=== PATIENT | female | born 1950 | race African-American/Black ===

== ENCOUNTER 2021-05-02 04:27 | Day surgery (SDC) | payer OTHER ==
[2021-04-27 13:56] VITALS: BMI 35.0
[2021-05-02] MEDS ORDERED: MIDAZOLAM HCL 2 MG/2 ML SINGLE DOSE VIAL ONE ×2 (09:49→10:31)
[2021-05-02] MEDS ORDERED: LIDOCAINE HCL/PF 2% SDV 5ML VIAL ONE (09:49)
[2021-05-02] MEDS ORDERED: ceFAZolin SODIUM 1 GM VIAL IVPB ONE (10:43)
[2021-05-02] MEDS ORDERED: PROPOFOL 20 ML ONE (10:55)
[2021-05-02] MEDS ORDERED: KETOROLAC TROMETHAMINE 30 MG/1 ML VIAL ONE (10:56)
[2021-05-02] MEDS ORDERED: ELECTROLYTE-148 SOLN 1,000 ML IV SCH (11:15)
[2021-05-02 14:51] VITALS: BP 128/75; PULSE 76; TEMP 97.9
== END 2021-05-02 13:40 | disposition home or self-care (01) ==
LOC: JASU-SURG 04:27
PROVIDERS: ATTEND Urology
PROC: 0TF3XZZ Fragmentation in Right Kidney Pelvis, External Approach (ICD-10-PCS; principal; 2021-05-02 11:00)
DX: N20.0 Calculus of kidney (principal); E11.9 Type 2 diabetes mellitus without complications; I10 Essential (primary) hypertension; I25.10 Atherosclerotic heart disease of native coronary artery without angina pectoris; Z85.3 Personal history of malignant neoplasm of breast; G47.33 Obstructive sleep apnea (adult) (pediatric)
CPT/HCPCS: 82962

== ENCOUNTER 2021-06-13 04:38 | Day surgery (SDC) | payer OTHER ==
[2021-06-12 13:57] VITALS: BMI 34.7
[2021-06-13] MEDS ORDERED: ELECTROLYTE-148 SOLN 1,000 ML IV SCH (11:00)
[2021-06-13] MEDS ORDERED: PROPOFOL 20 ML ONE (11:04)
[2021-06-13] MEDS ORDERED: MIDAZOLAM HCL 2 MG/2 ML SINGLE DOSE VIAL ONE (11:05)
[2021-06-13] MEDS ORDERED: ceFAZolin SODIUM 1 GM VIAL ONE (11:09)
[2021-06-13] MEDS ORDERED: SODIUM CHLORIDE 0.9% P/F 10 ML VIAL IJ ONE (11:09)
[2021-06-13] MEDS ORDERED: ceFAZolin SODIUM 1 GM VIAL IVPB ONE (11:13)
[2021-06-13] MEDS ORDERED: KETOROLAC TROMETHAMINE 30 MG/1 ML VIAL ONE (11:15)
[2021-06-13 12:11] VITALS: TEMP 97.6
[2021-06-13 16:16] VITALS: BP 141/76; PULSE 58
== END 2021-06-13 13:45 | disposition home or self-care (01) ==
LOC: JASU-SURG 04:38
PROVIDERS: ATTEND Urology
PROC: 0TF4XZZ Fragmentation in Left Kidney Pelvis, External Approach (ICD-10-PCS; principal; 2021-06-13 10:45)
DX: N20.2 Calculus of kidney with calculus of ureter (principal)

== ENCOUNTER 2021-07-06 04:19 | Day surgery (SDC) | payer OTHER ==
[2021-07-05 11:22] VITALS: BMI 34.7
[2021-07-06] MEDS ORDERED: LIDOCAINE HCL/PF 2% SDV 5ML VIAL ONE (12:52)
[2021-07-06] MEDS ORDERED: MIDAZOLAM HCL 2 MG/2 ML SINGLE DOSE VIAL ONE (12:52)
[2021-07-06] MEDS ORDERED: PROPOFOL 20 ML ONE (12:52)
[2021-07-06] MEDS ORDERED: ceFAZolin SODIUM 1 GM VIAL ONE (13:23)
[2021-07-06] MEDS ORDERED: ceFAZolin SODIUM 1 GM VIAL IVPB ONE (13:24)
[2021-07-06] MEDS ORDERED: KETOROLAC TROMETHAMINE 30 MG/1 ML VIAL ONE (13:59)
[2021-07-06] MEDS ORDERED: oxyCODONE HCL 5 MG TABLET PO PRN (14:25)
[2021-07-06] MEDS ORDERED: ONDANSETRON 4 MG/2 ML VIAL IVPUSH PRN (14:25)
[2021-07-06] MEDS ORDERED: ACETAMINOPHEN 500 MG TABLET (FP) PO PRN (14:25)
[2021-07-06] MEDS ORDERED: LACTATED RINGERS SOLUTION 1,000 ML IV SCH (14:30)
[2021-07-06] MEDS ORDERED: ELECTROLYTE-148 SOLN 1,000 ML IV SCH (15:45)
[2021-07-06 15:47] VITALS: TEMP 96.8
[2021-07-06 16:30] VITALS: BP 124/62; PULSE 80
== END 2021-07-06 16:30 | disposition home or self-care (01) ==
LOC: JASU-SURG 04:19
PROVIDERS: ATTEND Urology
PROC: 0TB78ZX Excision of Left Ureter, Via Natural or Artificial Opening Endoscopic, Diagnostic (ICD-10-PCS; principal; 2021-07-06 12:30)
DX: N28.9 Disorder of kidney and ureter, unspecified (principal); I10 Essential (primary) hypertension; E11.9 Type 2 diabetes mellitus without complications
CPT/HCPCS: 88108; 88305-TC; 94760

== ENCOUNTER 2022-01-09 04:27 | Day surgery (SDC) | payer OTHER ==
[2022-01-05 11:58] VITALS: BMI 34.0
[2022-01-09] MEDS ORDERED: ELECTROLYTE-148 SOLN 1,000 ML IV SCH (11:45)
[2022-01-09] MEDS ORDERED: ceFAZolin SODIUM 1 GM VIAL IVPB ONE (12:16)
[2022-01-09] MEDS ORDERED: IOHEXOL 300 MG/ML INFUS..BTL IV ONE (13:15)
[2022-01-09] MEDS ORDERED: PROMETHAZINE HCL 25 MG/1 ML VIAL IVPB PRN (13:27)
[2022-01-09] MEDS ORDERED: ONDANSETRON 4 MG/2 ML VIAL IVPUSH PRN (13:27)
[2022-01-09] MEDS ORDERED: ACETAMINOPHEN 1000 MG/100 ML BAG IVPB PRN (13:28)
[2022-01-09] MEDS ORDERED: LACTATED RINGERS SOLUTION 1,000 ML IV SCH (13:30)
[2022-01-09] MEDS ORDERED: ACETAMINOPHEN INJECTION 100 ML IVPB ONE (15:11)
[2022-01-09 16:16] VITALS: BP 124/69; PULSE 86; TEMP 97
== END 2022-01-09 16:51 | disposition home or self-care (01) ==
LOC: JASU-SURG 04:27
PROVIDERS: ATTEND Urology
PROC: 0TF48ZZ Fragmentation in Left Kidney Pelvis, Via Natural or Artificial Opening Endoscopic (ICD-10-PCS; principal; 2022-01-09 12:00)
PROC: 0T778DZ Dilation of Left Ureter with Intraluminal Device, Via Natural or Artificial Opening Endoscopic (ICD-10-PCS; 2022-01-09 12:00)
DX: N20.0 Calculus of kidney (principal)
CPT/HCPCS: 76000-TC-FY; 94760

== ENCOUNTER 2022-01-23 03:47 | Day surgery (SDC) | payer OTHER ==
[2022-01-17 15:47] VITALS: BMI 34.5
[2022-01-23] MEDS ORDERED: ELECTROLYTE-148 SOLN 1,000 ML IV SCH (11:45)
[2022-01-23] MEDS ORDERED: MIDAZOLAM HCL 2 MG/2 ML SINGLE DOSE VIAL ONE (11:57)
[2022-01-23] MEDS ORDERED: ceFAZolin SODIUM 1 GM VIAL ONE (12:04)
[2022-01-23] MEDS ORDERED: ceFAZolin SODIUM 1 GM VIAL IVPB ONE (12:05)
[2022-01-23] MEDS ORDERED: KETOROLAC TROMETHAMINE 30 MG/1 ML VIAL ONE (12:09)
[2022-01-23 13:44] VITALS: TEMP 97.4
[2022-01-23 13:49] VITALS: BP 130/70; PULSE 70
== END 2022-01-23 14:10 | disposition home or self-care (01) ==
LOC: JASU-SURG 03:47
PROVIDERS: ATTEND Urology
PROC: 0TF4XZZ Fragmentation in Left Kidney Pelvis, External Approach (ICD-10-PCS; principal; 2022-01-23 11:00)
DX: N20.0 Calculus of kidney (principal)